=== PATIENT | female | born 1985 | race Caucasian/White ===

== ENCOUNTER 2017-12-20 14:13 | Outpatient (CLI) | payer MEDICAID | END 2017-12-20 18:35 | disposition home or self-care (01) | LOC: OBT 14:13 → L-D 14:15 → OBT 18:35 | DX: O24.419 Gestational diabetes mellitus in pregnancy, unspecified control (principal); Z3A.37 37 weeks gestation of pregnancy | CPT/HCPCS: 76818 ==

== ENCOUNTER 2017-12-23 17:37 | Outpatient (CLI) | payer MEDICAID | END 2017-12-23 21:25 | disposition home or self-care (01) | LOC: OBT 17:37 → L-D 17:38 → OBT 21:25 | DX: O24.419 Gestational diabetes mellitus in pregnancy, unspecified control (principal); Z3A.38 38 weeks gestation of pregnancy | CPT/HCPCS: 76815; 76818 ==

== ENCOUNTER 2017-12-26 18:04 | Outpatient (CLI) | payer MEDICAID | END 2017-12-26 21:28 | disposition home or self-care (01) | LOC: OBT 18:04 → L-D 18:05 → OBT 21:28 | DX: O24.415 Gestational diabetes mellitus in pregnancy, controlled by oral hypoglycemic drugs (principal); Z3A.38 38 weeks gestation of pregnancy; Z79.84 Long term (current) use of oral hypoglycemic drugs | CPT/HCPCS: 76818; 82962 ==

== ENCOUNTER 2017-12-28 09:17 | Inpatient (IN) | payer MEDICAID ==
[2017-12-28] MEDS ORDERED: METHYLERGONOVINE 0.2 MG INJ IM (10:00)
[2017-12-28] MEDS ORDERED: OXYCODONE/ACETAMINOPHEN (5/325) TAB PO (10:00)
[2017-12-28] MEDS ORDERED: IBUPROFEN 600 MG TAB PO (10:00)
[2017-12-28] MEDS ORDERED: CARBOPROST 250 MCG INJ IM (10:00)
[2017-12-28] MEDS ORDERED: OXYTOCIN 30 UNITS/LR 500 ML IV ×2 (10:00→20:27)
[2017-12-28] MEDS ORDERED: LIDOCAINE 1% (MPF) 30 ML INJ INJ (10:00)
[2017-12-28] MEDS ORDERED: BUTORPHANOL 2 MG INJ IV (10:00)
[2017-12-28] MEDS ORDERED: MISOPROSTOL 200 MCG TAB PR (10:00)
[2017-12-28] MEDS: LACTATED RINGER'S 1,000 ML IV ×4 (10:40→20:34)
[2017-12-28 10:54] LABS: ADD MAN DIFF? NO
[2017-12-28 11:16] LABS: GLUCOSE 90 mg/dl (70-220)
[2017-12-28 11:19] LABS: BASOPHILS % 0.3 % (0.0-2.0); EOSINOPHILS # 0.1 10^3/ul (0.0-0.5); EOSINOPHILS % 0.5 % (0.0-7.0); HEMATOCRIT 35.3 % (37.0-47.0); HEMOGLOBIN 12.2 g/dl (12.0-16.0); LYMPHOCYTES # 1.7 10^3/ul (0.8-2.9); LYMPHOCYTES % 16.5 % (15.0-51.0); MEAN CORPUSCULAR HEMOGLOBIN 29.8 pg (29.0-33.0); MEAN CORPUSCULAR HGB CONC 34.6 g/dl (32.0-37.0); MEAN CORPUSCULAR VOLUME 86.3 fl (82.0-101.0); MONOCYTE # 0.6 10^3/ul (0.3-0.9); MONOCYTES % 5.6 % (0.0-11.0); NEUTROPHIL # 7.7 10^3/ul (1.6-7.5); NEUTROPHILS % 76.5 % (39.0-77.0); PLATELET COUNT 193 10^3/UL (140-415); RED BLOOD COUNT 4.09 10^6/ul (4.20-5.40); RED CELL DISTRIBUTION WIDTH 13.5 % (11.5-14.5)
[2017-12-28 11:19] LABS: WHITE BLOOD COUNT 10.1 10^3/ul (4.8-10.8)
[2017-12-28 11:32] LABS: INR 0.95; PROTIME 12.8 Sec (11.9-14.9)
[2017-12-28 11:33] LABS: PARTIAL THROMBOPLASTIN TIME 29.6 Sec (25.0-35.0)
[2017-12-28 11:46] LABS: HEPATITIS B SURFACE ANTIGEN NEGATIVE (NEGATIVE)
[2017-12-28] MEDS ORDERED: FENTAnyl 2MCG/ML-ROPIV 0.2% 100 ML (12:53)
[2017-12-28] MEDS: OXYTOCIN 30 UNITS/LR 500 ML IV ×3 (13:36→23:42)
[2017-12-28] MEDS: DEXTROSE 5%-LR 1,000 ML IV (13:43)
[2017-12-28 16:45] LABS: RAPID PLASMA REAGIN NONREACTIVE (NR)
[2017-12-28] MEDS ORDERED: FENTAnyl 2MCG/ML-ROPIV 0.2% 100 ML BAG EPI (17:00)
[2017-12-28] MEDS ORDERED: NALOXONE (0.4 MG/ML) INJ IV ×2 (17:00→22:30)
[2017-12-28] MEDS ORDERED: CEFAZOLIN 2 GM/50 ML (PMX) 50 ML IVPB (18:16)
[2017-12-28] MEDS ORDERED: CITRIC ACID/SODIUM CITRATE 15 ML CUP (18:42)
[2017-12-28] MEDS: CITRIC ACID/SODIUM CITRATE 15 ML CUP PO (19:21)
[2017-12-28] MEDS ORDERED: LIDOCAINE 1.5%/EPI MPF (SDV) 30 ML VIAL (20:27)
[2017-12-28] MEDS ORDERED: morphine SULFATE/PF (10 MG/10 ML) INJ (20:28)
[2017-12-28] MEDS: CEFAZOLIN 2 GM/50 ML (PMX) 50 ML IV (20:34)
[2017-12-28] MEDS ORDERED: KETOROLAC 30 MG INJ (20:42)
[2017-12-28] MEDS ORDERED: METOCLOPRAMIDE 10 MG INJ (20:42)
[2017-12-28] MEDS ORDERED: ONDANSETRON 4 MG INJ (20:42)
[2017-12-28] MEDS ORDERED: EPHEDrine SULFATE 50 MG/5 ML SYG (20:58)
[2017-12-28] MEDS ORDERED: ONDANSETRON 4 MG INJ IV ×2 (22:30)
[2017-12-28] MEDS ORDERED: morphine 2 MG INJ IV ×3 (22:30)
[2017-12-28] MEDS ORDERED: morphine (1 MG/ML) 10ML SYRINGE IV ×3 (22:30)
[2017-12-28] MEDS ORDERED: DIPHENHYDRAMINE 50 MG INJ IV (22:30)
[2017-12-29] MEDS: KETOROLAC 30 MG INJ IV ×4 (00:35→18:39)
[2017-12-29] MEDS: DIPHENHYDRAMINE 50 MG INJ IV ×2 (00:49→06:30)
[2017-12-29] MEDS ORDERED: MISOPROSTOL 200 MCG TAB PR (03:00)
[2017-12-29] MEDS ORDERED: OXYTOCIN 30 UNITS/LR 500 ML IV (03:00)
[2017-12-29] MEDS ORDERED: LANOLIN 7 GM TUBE TOP (03:00)
[2017-12-29] MEDS ORDERED: OXYCODONE/ACETAMINOPHEN (5/325) TAB PO ×4 (03:00→22:30)
[2017-12-29] MEDS ORDERED: HYDROCODONE/APAP (5/325) TAB PO ×3 (03:00→22:30)
[2017-12-29] MEDS ORDERED: CARBOPROST 250 MCG INJ IM (03:00)
[2017-12-29] MEDS ORDERED: METHYLERGONOVINE 0.2 MG INJ IM (03:00)
[2017-12-29] MEDS: CEFAZOLIN 1 GM/50 ML (PMX) 50 ML IVPB (03:10)
[2017-12-29] MEDS: OXYTOCIN 30 UNITS/LR 500 ML IV ×3 (03:14→10:47)
[2017-12-29 09:41] LABS: ADD MAN DIFF? NO
[2017-12-29 09:46] LABS: BASOPHILS % 0.2 % (0.0-2.0); EOSINOPHILS % 0.2 % (0.0-7.0); HEMATOCRIT 25.3 % (37.0-47.0); HEMOGLOBIN 8.7 g/dl (12.0-16.0); LYMPHOCYTES # 1.7 10^3/ul (0.8-2.9); LYMPHOCYTES % 14.2 % (15.0-51.0); MEAN CORPUSCULAR HEMOGLOBIN 30.3 pg (29.0-33.0); MEAN CORPUSCULAR HGB CONC 34.4 g/dl (32.0-37.0); MEAN CORPUSCULAR VOLUME 88.2 fl (82.0-101.0); MEAN PLATELET VOLUME 11.5 fl (7.4-10.4); MONOCYTE # 0.7 10^3/ul (0.3-0.9); MONOCYTES % 5.5 % (0.0-11.0); NEUTROPHIL # 9.8 10^3/ul (1.6-7.5); NEUTROPHILS % 79.5 % (39.0-77.0); PLATELET COUNT 150 10^3/UL (140-415); RED BLOOD COUNT 2.87 10^6/ul (4.20-5.40); RED CELL DISTRIBUTION WIDTH 13.8 % (11.5-14.5)
[2017-12-29 09:46] LABS: WHITE BLOOD COUNT 12.3 10^3/ul (4.8-10.8)
[2017-12-29] MEDS: LACTATED RINGER'S 1,000 ML IV ×3 (12:22→21:22)
[2017-12-29] MEDS: FUROSEMIDE 20 MG TAB PO (13:02)
[2017-12-29] MEDS: SENNA/DOCUSATE NA (8.6MG/50MG) TAB PO (21:00)
[2017-12-29] MEDS: SENNA TAB PO ×2 (21:22→21:59)
[2017-12-29] MEDS ORDERED: ACETAMINOPHEN 325 MG TAB PO (21:30)
[2017-12-29 22:07] LABS: ADD UMIC YES; UR ASCORBIC ACID NEGATIVE (NEGATIVE); UR BACTERIA FEW /HPF (NONE SEEN); UR BILIRUBIN (Dip) NEGATIVE (NEGATIVE); UR BLOOD (Dip) 3+ mg/dL (NEGATIVE); UR CLARITY CLEAR (CLEAR); UR COLOR STRAW (YELLOW); UR GLUCOSE (Dip) NEGATIVE (NEGATIVE); UR KETONES (Dip) TRACE mg/dL (NEGATIVE); UR LEUKOCYTE ESTERASE (Dip) TRACE Leu/ul (NEGATIVE); UR NITRITE (Dip) NEGATIVE (NEGATIVE); UR RBC 7 /HPF (0-5); UR SPECIFIC GRAVITY (Dip) 1.003 (1.003-1.030); UR SQUAMOUS EPITHELIAL CELL FEW /HPF (FEW); UR TOTAL PROTEIN (Dip) NEGATIVE (NEGATIVE); UR UROBILINOGEN (Dip) NEGATIVE (NEGATIVE); UR WBC 2 /HPF (0-5)
[2017-12-29] MEDS: CEFTRIAXONE 2 GM/50 ML (PMX) 50 ML IVPB (22:41)
[2017-12-30] MEDS: IBUPROFEN 600 MG TAB PO ×4 (00:04→17:39)
[2017-12-30] MEDS: LACTATED RINGER'S 1,000 ML IV (07:31)
[2017-12-30] MEDS: SENNA/DOCUSATE NA (8.6MG/50MG) TAB PO ×2 (08:58→21:00)
[2017-12-30 09:37] LABS: ADD MAN DIFF? NO
[2017-12-30 09:45] LABS: BASOPHILS % 0.3 % (0.0-2.0); EOSINOPHILS # 0.1 10^3/ul (0.0-0.5); EOSINOPHILS % 0.6 % (0.0-7.0); HEMATOCRIT 24.7 % (37.0-47.0); HEMOGLOBIN 8.4 g/dl (12.0-16.0); LYMPHOCYTES # 1.7 10^3/ul (0.8-2.9); LYMPHOCYTES % 14.4 % (15.0-51.0); MEAN CORPUSCULAR HEMOGLOBIN 30.1 pg (29.0-33.0); MEAN CORPUSCULAR VOLUME 88.5 fl (82.0-101.0); MEAN PLATELET VOLUME 11.5 fl (7.4-10.4); MONOCYTE # 0.6 10^3/ul (0.3-0.9); MONOCYTES % 5.6 % (0.0-11.0); NEUTROPHIL # 9.1 10^3/ul (1.6-7.5); NEUTROPHILS % 78.7 % (39.0-77.0); PLATELET COUNT 157 10^3/UL (140-415); RED BLOOD COUNT 2.79 10^6/ul (4.20-5.40); RED CELL DISTRIBUTION WIDTH 13.9 % (11.5-14.5)
[2017-12-30 09:45] LABS: WHITE BLOOD COUNT 11.5 10^3/ul (4.8-10.8)
[2017-12-30] MEDS ORDERED: NA PHOSPHATE/BIPHOS 133 ML ENEMA PR (13:00)
[2017-12-30] MEDS: HYDROCODONE/APAP (5/325) TAB PO (14:23)
[2017-12-30] MEDS: NA PHOSPHATE/BIPHOS 133 ML ENEMA PR (16:46)
[2017-12-30] MEDS ORDERED: CEFTRIAXONE 2 GM INJ IM ×2 (22:40)
[2017-12-30] MEDS: CEFTRIAXONE 2 GM/50 ML (PMX) 50 ML IVPB (22:42)
[2017-12-31] MEDS: IBUPROFEN 600 MG TAB PO ×3 (00:23→12:07)
[2017-12-31] MEDS ORDERED: DIPHTH/TET/ACEL PERTUSS (ADULT) 0.5 ML VIAL IM* (09:00)
[2017-12-31] MEDS: SENNA/DOCUSATE NA (8.6MG/50MG) TAB PO (09:12)
== END 2017-12-31 15:39 | disposition home or self-care (01) | DRG 766 ==
LOC: OBT 09:17 → PP1 12-29 01:27 → L-D 09:18 → OBT 10:10 → L-D 10:00
PROVIDERS: Obstetrics & Gynecology
PROC: 10D00Z1 Extraction of Products of Conception, Low, Open Approach (ICD-10-PCS; principal; 2017-12-28)
PROC: 0UL70ZZ Occlusion of Bilateral Fallopian Tubes, Open Approach (ICD-10-PCS; 2017-12-28)
PROC: 3E033VJ Introduction of Other Hormone into Peripheral Vein, Percutaneous Approach (ICD-10-PCS; 2017-12-28)
DX: O62.0 Primary inadequate contractions (principal); O24.429 Gestational diabetes mellitus in childbirth, unspecified control; Z30.2 Encounter for sterilization; Z3A.38 38 weeks gestation of pregnancy; Z37.0 Single live birth
CPT/HCPCS: 62319; 76818; 81001; 82947; 82962; 85025; 85610; 85730; 86592; 86900; 86901; 87086; 87340; 88302; 94760; 99464